=== PATIENT | female | born 1940 | race Caucasian/White ===

== ENCOUNTER 2023-04-20 16:32 | Inpatient (IN) | payer MEDICARE, BC ==
[~2023-04-20] VITALS: Ht 154.9 cm; Wt 40.9 kg
[~2023-04-20 16:32] MED LIST: APIX5TAB3 PO; CARV3.122 PO; FLUT1BLS16 INH; FURO20TA4 PO; LEVO125T8 PO; PANT-47 PO; POTA-206 PO; TRAZ-251 PO
[2023-04-20] MEDS ORDERED: HYDROcodone/acetaminophen 5mg/325mg tablet PO ONE (17:30)
[2023-04-20 18:23] LABS: BASOPHILS # (AUTO) 0.1 X10'3 (0-0.2); BASOPHILS % (AUTO) 0.8 % (0-1); EOSINOPHILS % (AUTO) 0.6 % (0-6); HEMATOCRIT 45.3 % (35.0-45.0); HEMOGLOBIN 15.5 g/dl (12.0-16.0); LYMPHOCYTES # (AUTO) 1.7 X10'3 (1.1-4.8); MEAN CORPUSCULAR HEMOGLOBIN 34.8 PG (27.0-31.0); MEAN CORPUSCULAR HGB CONC 34.3 g/dL (33.0-36.5); MEAN CORPUSCULAR VOLUME 101.5 FL (78-98); MEAN PLATELET VOLUME 9.8 FL (7.4-10.4); MONOCYTES # (AUTO) 0.6 X10'3 (0-0.9); MONOCYTES % (AUTO) 9.2 % (2-12); NEUTROPHILS # (AUTO) 3.8 X10'3 (1.8-7.7); NEUTROPHILS % (AUTO) 62.4 % (42-75); PLATELET COUNT 236 X10'3 (140-440); RED BLOOD COUNT 4.46 X10'6 (4.20-5.60); WHITE BLOOD COUNT 6.1 X10'3 (4.5-11.0)
--- NOTE | 2023-04-20 18:34 | NUR ---
MRI FORM COMPLETED AND FAXED.
--- NOTE | 2023-04-20 18:34 | NUR ---
RN CALLED FOR EKG TO BE PERFORMED.
[2023-04-20 18:36] LABS: APTT 37 SECONDS (22-32); INR 1.4 INR; PROTHROMBIN TIME 14.4 SECONDS (9.0-12.0)
[2023-04-20 18:41] LABS: ALANINE AMINOTRANSFERASE 18 U/L (12-78); ALBUMIN 3.4 G/DL (3.4-5.0); ALBUMIN/GLOBULIN RATIO 0.8 (1.1-1.5); ALKALINE PHOSPHATASE 89 IU/L (46-116); ANION GAP 8 (8-16); ASPARTATE AMINO TRANSFERASE 22 U/L (10-37); BILIRUBIN,TOTAL 1.4 MG/DL (0.1-1.0); BLOOD UREA NITROGEN 22 MG/DL (7-18); BUN/CREATININE RATIO 22.9 (10.0-20.0); CALCIUM 10.3 MG/DL (8.5-10.1); CHLORIDE 101 MMOL/L (99-107); CREATININE 0.96 MG/DL (0.40-0.90); GLUCOSE 120 MG/DL (70-104); POTASSIUM 3.5 MMOL/L (3.5-5.1); SODIUM 139 MMOL/L (135-145); TOTAL CARBON DIOXIDE 30.2 MMOL/L (24-32); TOTAL PROTEIN 7.6 G/DL (6.4-8.2); eCRCL 30 ML/MIN; eGFR 56 ML/MIN
[2023-04-20 18:48] LABS: PRO BRAIN NATRIURETIC PEPTIDE 14840 PG/ML (0-450)
--- NOTE | 2023-04-20 18:58 | NUR ---
EKG BEING COMPLETED AND THEN PT WILL BE TAKEN TO MRI. MRI NOTIFIED.
[2023-04-20] MEDS ORDERED: potassium Cl 20 mEq SR tablet PO PRN ×2 (19:40)
[2023-04-20] MEDS ORDERED: potassium Cl 40MEQ/1/2NS 520ml 520 ML IV PRN (19:40)
[2023-04-20] MEDS ORDERED: acetaminophen 325mg tablet PO PRN (19:40)
[2023-04-20] MEDS ORDERED: ondansetron/PF 4mg/2ml inj IV PRN (19:40)
[2023-04-20] MEDS ORDERED: magnesium 2GM in 50ml NS 50 ML IV PRN (19:40)
[2023-04-20] MEDS ORDERED: magnesium Cl slow-release 64mg tablet PO PRN (19:40)
[2023-04-20] MEDS ORDERED: magnesium 4gm in 100ml NS 100 ML IV PRN (19:40)
[2023-04-20] MEDS: K and/or MAG REPLACEMENT MC SCH (20:00)
[2023-04-20] MEDS: morphine 2 MG/ML inj. syringe IV PRN (20:15)
[2023-04-20] MEDS: normal saline 1000ml 1,000 ML IV SCH (20:44)
--- NOTE | 2023-04-20 22:53 | NUR ---
pt is incontinent and was sitting in bowel and urine since 3 pm pt has some redness on her bottom states she uses cream at [facility]
[2023-04-21 01:30] VITALS: BP 113/74; PULSE 100; RESP 20; TEMP 97.8; O2SAT 95
[2023-04-21] MEDS ORDERED: furosemide 40mg/4ml inj IV ONE (03:30)
[2023-04-21 05:00] VITALS: BP 124/70; PULSE 120; RESP 20; TEMP 97.3; O2SAT 98
--- NOTE | 2023-04-21 06:16 | NUR ---
Problems reprioritized. Patient report given, questions answered & plan of care reviewed with Valencia Madrigal
--- NOTE | 2023-04-21 06:23 | NUR ---
Problems reprioritized. Patient report given, questions answered & plan of care reviewed with Valencia MCKEON.
[2023-04-21] MEDS: K and/or MAG REPLACEMENT MC SCH ×2 (08:00→20:00)
[2023-04-21] MEDS: lactose-reduced food (Ensure Enlive) - 237ml bottle PO SCH ×5 (08:00→17:45)
[2023-04-21 08:03] LABS: BASOPHILS # (AUTO) 0.1 X10'3 (0-0.2); BASOPHILS % (AUTO) 0.9 % (0-1); EOSINOPHILS % (AUTO) 0.5 % (0-6); HEMATOCRIT 45.4 % (35.0-45.0); HEMOGLOBIN 15.1 g/dl (12.0-16.0); LYMPHOCYTES # (AUTO) 1.5 X10'3 (1.1-4.8); MEAN CORPUSCULAR HEMOGLOBIN 34.1 PG (27.0-31.0); MEAN CORPUSCULAR HGB CONC 33.2 g/dL (33.0-36.5); MEAN CORPUSCULAR VOLUME 102.6 FL (78-98); MEAN PLATELET VOLUME 9.6 FL (7.4-10.4); MONOCYTES # (AUTO) 0.6 X10'3 (0-0.9); MONOCYTES % (AUTO) 10.4 % (2-12); NEUTROPHILS # (AUTO) 3.4 X10'3 (1.8-7.7); NEUTROPHILS % (AUTO) 61.2 % (42-75); PLATELET COUNT 206 X10'3 (140-440); RED BLOOD COUNT 4.42 X10'6 (4.20-5.60); RED CELL DISTRIBUTION WIDTH 14.8 % (11.5-14.5); WHITE BLOOD COUNT 5.5 X10'3 (4.5-11.0)
[2023-04-21] MEDS ORDERED: PERFLUTREN PROTEIN-A MICROSPHR (Optison) 0.22 MG/ML 3ML VIAL IV ONE (08:05)
[2023-04-21 08:15] LABS: ALBUMIN 3.1 G/DL (3.4-5.0); ANION GAP 6 (8-16); BLOOD UREA NITROGEN 20 MG/DL (7-18); BUN/CREATININE RATIO 22.2 (10.0-20.0); CHLORIDE 102 MMOL/L (99-107); GLUCOSE 123 MG/DL (70-104); MAGNESIUM 2.1 MG/DL (1.5-2.4); POTASSIUM 4.1 MMOL/L (3.5-5.1); SODIUM 137 MMOL/L (135-145); TOTAL CARBON DIOXIDE 29.1 MMOL/L (24-32); eCRCL 32 ML/MIN; eGFR 60 ML/MIN
[2023-04-21] MEDS: Fluticasone/Umeclidin/Vilanter (Trelegy Ellipta 200-62.5-25) INHALER IH SCH (08:45)
[2023-04-21] MEDS: apixaban 5mg tablet PO SCH ×2 (09:28→20:20)
[2023-04-21] MEDS: furosemide 20MG tablet PO SCH (09:28)
[2023-04-21] MEDS: levoTHYROXINE 125mcg tablet PO SCH (09:28)
[2023-04-21] MEDS: carVEDilol 3.125mg tablet PO SCH (09:28)
[2023-04-21] MEDS: potassium chloride 10mEq ER tablet PO SCH (09:28)
[2023-04-21] MEDS: pantoprazole 40mg Tablet.DR PO SCH ×2 (09:29→20:20)
[2023-04-21 10:00] VITALS: BP 113/81; PULSE 58; RESP 13; TEMP 98.3; O2SAT 100
[2023-04-21 11:43] LABS: THYROID STIMULATING HORMONE 9.78 ulU/ml (0.34-4.50)
--- NOTE | 2023-04-21 13:20 | NUR ---
Initial: Pt admit DX L2 compression fx and hypothyroidism per EMR. Pt reports >34 pounds wt loss w/ decreased intake [employer] per RN Malnutrition Screen. Pt/family seen by RD at bedside; pt reports UBW 150 pounds prior to being sick initially which family confirms was actually ~4 years ago. Per pt/family, decreasing appetite over past 4 years mainly picks at meals throughout the day though does drink Boost daily at home. Current standing scaled wt 90 pounds w/ no prior scaled wt hx. Reported wt loss would be avg ~10% per year past 4 years; given this w/ severe weakness and moderate-severe temporal and bilateral arms wasting evident pt meets severe malnutrition criteria-MD notified. RD provided pt/family w/ Ensure coupons and RD contact information. PO initial meals pending though Ensure Enlive TIDWM started per MD first [facility] today. Pt reports required EC7/thin diet w/ chopped meats per prior OVEN HEATER outpatient assessment since trouble chewing; declines OVEN HEATER BSS this admit-dietary notified of preferences. Pt reports trouble w/ fluids intake though likes soda; is agreeable to lemon-twenty-nine palms soda BIDLD and crystal light packet TIDWM. RD paged MD regarding liberalizing to regular diet and addition of routine MVI given malnutrition status is agreeable; pt reports take MVM daily at home. LBM 04/20 per EMR. Will monitor for further nutrition intervention needs this admit. Rec: 1. liberalize to regular diet; EC7/thin w/ chopped meats for ease of PO. Pt reports were outpatient OVEN HEATER recs; declines OVEN HEATER this admit 2. Ensure Enlive TIDWM per MD; encourage PO meals/ONS 3. routine MVI supplementation given malnutrition status 4. routine bowel care 5. weekly wt Addendum: 04/21/23 at [address] Amended: Links added. Addendum: 04/21/23 at [address] Initial: Pt admit DX L2 compression fx and hypothyroidism per EMR. Pt reports >34 pounds wt loss w/ decreased intake [employer] per RN Malnutrition Screen. Pt/family seen by RD at bedside; pt reports UBW 150 pounds prior to being sick initially which family confirms was actually ~4 years ago. Per pt/family, decreasing appetite over past 4 years mainly picks at meals throughout the day though does drink Boost daily at home. Current standing scaled wt 90 pounds w/ no prior scaled wt hx. Reported wt loss would be avg ~10% per year past 4 years; given this w/ severe weakness and moderate-severe temporal and bilateral arms wasting evident pt meets severe malnutrition criteria-MD notified. RD provided pt/family w/ Ensure coupons and RD contact information. PO initial meals pending though Ensure Enlive TIDWM started per MD first [facility] today. Pt reports required EC7/thin diet w/ chopped meats per prior OVEN HEATER outpatient assessment since trouble chewing; declines OVEN HEATER BSS this admit-dietary notified of preferences. Pt reports trouble w/ fluids intake though likes soda; is agreeable to lemon-twenty-nine palms soda BIDLD and crystal light packet TIDWM. RD paged MD regarding liberalizing to regular diet and addition of routine MVI given malnutrition status is agreeable; pt reports take MVI daily at home. RD encouraged pt family to bring foods from outside per pt preferences to assist w/ intake. LBM 04/20 per EMR. Will monitor for further nutrition intervention needs this admit. Rec: 1. liberalize to regular diet; EC7/thin w/ chopped meats for ease of PO. Pt reports were outpatient OVEN HEATER recs; declines OVEN HEATER this admit. Encourage outside foods if pt preference. 2. Ensure Enlive TIDWM per MD; encourage PO meals/ONS 3. routine MVI supplementation given malnutrition status 4. routine bowel care 5. weekly wt
--- NOTE | 2023-04-21 15:08 | NUR ---
Pt complained of pain while urinating with ferguson catheter. RN noticed urine leakage and the decision was made to dc ferguson catheter. A wick was placed. Patient tolerating well.
[2023-04-21 18:00] VITALS: BP 106/67; PULSE 80; RESP 11; TEMP 98.4; O2SAT 100
--- NOTE | 2023-04-21 18:52 | NUR ---
Report given to Dada MORRIS, pt ate some dinner. Now resting.
[2023-04-21] MEDS: morphine 2 MG/ML inj. syringe IV PRN (19:08)
[2023-04-21 20:00] VITALS: RESP 16; O2SAT 96
[2023-04-21] MEDS: traZODone 50mg tablet PO SCH (20:20)
[2023-04-21 22:00] VITALS: BP 105/67; PULSE 53; RESP 16; TEMP 97.4; O2SAT 96
[2023-04-22] MEDS: morphine 2 MG/ML inj. syringe IV PRN ×4 (05:13→20:22)
[2023-04-22 06:00] VITALS: BP 85/64; PULSE 66; RESP 14; TEMP 97.3; O2SAT 95
--- NOTE | 2023-04-22 06:24 | NUR ---
Patient in room ORTHO 4014. I have received report from ARTURO EDGAR and had the opportunity to ask questions and assume patient care.
[2023-04-22 06:39] LABS: ALBUMIN 2.9 G/DL (3.4-5.0); ANION GAP 6 (8-16); BLOOD UREA NITROGEN 23 MG/DL (7-18); BUN/CREATININE RATIO 27.4 (10.0-20.0); CALCIUM 9.7 MG/DL (8.5-10.1); CHLORIDE 104 MMOL/L (99-107); CREATININE 0.84 MG/DL (0.40-0.90); GLUCOSE 115 MG/DL (70-104); POTASSIUM 3.9 MMOL/L (3.5-5.1); SODIUM 138 MMOL/L (135-145); TOTAL CARBON DIOXIDE 27.8 MMOL/L (24-32); eCRCL 34 ML/MIN; eGFR 65 ML/MIN
[2023-04-22 06:46] LABS: MEAN CORPUSCULAR HGB CONC 33.4 g/dL (33.0-36.5); MEAN PLATELET VOLUME 9.8 FL (7.4-10.4)
[2023-04-22 06:49] LABS: BASOPHILS % (AUTO) 0.8 % (0-1); HEMATOCRIT 42.8 % (35.0-45.0); HEMOGLOBIN 14.3 g/dl (12.0-16.0); LYMPHOCYTES # (AUTO) 1.1 X10'3 (1.1-4.8); MEAN CORPUSCULAR HEMOGLOBIN 34.3 PG (27.0-31.0); MEAN CORPUSCULAR VOLUME 102.6 FL (78-98); MONOCYTES # (AUTO) 0.5 X10'3 (0-0.9); MONOCYTES % (AUTO) 9.9 % (2-12); NEUTROPHILS # (AUTO) 3.1 X10'3 (1.8-7.7); NEUTROPHILS % (AUTO) 65.3 % (42-75); PLATELET COUNT 197 X10'3 (140-440); RED BLOOD COUNT 4.17 X10'6 (4.20-5.60); RED CELL DISTRIBUTION WIDTH 14.9 % (11.5-14.5); WHITE BLOOD COUNT 4.8 X10'3 (4.5-11.0)
--- NOTE | 2023-04-22 07:37 | NUR ---
Patient in room ORTHO 4014. I have received report from JOSE MORRIS and had the opportunity to ask questions and assume patient care.
[2023-04-22] MEDS: levoTHYROXINE 125mcg tablet PO SCH (07:56)
[2023-04-22] MEDS: pantoprazole 40mg Tablet.DR PO SCH ×2 (07:56→20:23)
[2023-04-22] MEDS: potassium chloride 10mEq ER tablet PO SCH (07:56)
[2023-04-22] MEDS: apixaban 5mg tablet PO SCH ×2 (07:56→20:00)
[2023-04-22] MEDS: Fluticasone/Umeclidin/Vilanter (Trelegy Ellipta 200-62.5-25) INHALER IH SCH (08:00)
[2023-04-22] MEDS: carVEDilol 3.125mg tablet PO SCH (08:00)
[2023-04-22] MEDS: lactose-reduced food (Ensure Enlive) - 237ml bottle PO SCH ×3 (08:00→18:26)
[2023-04-22] MEDS: furosemide 20MG tablet PO SCH (08:00)
[2023-04-22] MEDS: K and/or MAG REPLACEMENT MC SCH ×2 (08:00→20:00)
[2023-04-22 09:30] VITALS: BP 104/63
[2023-04-22] MEDS: normal saline 1000ml 1,000 ML IV SCH (12:46)
--- NOTE | 2023-04-22 17:01 | NUR ---
When trying to reassess morphine, accidentally hit admin not reassess. Reviewed with primary nurse and undid the admin. Addendum: 04/22/23 at 1707 by Sawyer Carbone RN reviewed this with nursing admin and it was fixed.
--- NOTE | 2023-04-22 17:10 | NUR ---
called dr baron about pts low urine output, there is maybe about 10 ml of urine in her wick canister it is dark garcia cloudy and no aides or others had changed any incontinence. dr baron stated she wasn't sure what to do. i informed her that i did have to hold lasix and her coreg this am due to low bp. md ordered some lasix 10 mg iv due to pts bp being a little higher then earlier and fluids to run at 60 mls an hr, along with a Sánchez for prolonged immobilization.
[2023-04-22] MEDS ORDERED: furosemide 10 MG/1 ML 10ml inj IV ONE (17:30)
[2023-04-22] MEDS ORDERED: LidoCAINE 2% Topical Jelly 11mL syringe TOP ONE (17:30)
[2023-04-22 18:00] VITALS: BP 117/83; PULSE 106; RESP 16; TEMP 97.5; O2SAT 96
--- NOTE | 2023-04-22 18:31 | NUR ---
Student documentation: I have reviewed all interventions, assessments performed and documented by Cassandra Shirley with [facility]. Student Medication Administration: For this medication-pass time frame 1601-4318, all medication were reviewed, dispensed, administered and documented per hospital policy by Cassandra Shirley with [facility].
--- NOTE | 2023-04-22 18:32 | NUR ---
Problems reprioritized. Patient report given, questions answered & plan of care reviewed with ana vogel.
[2023-04-22 20:00] VITALS: RESP 16; O2SAT 96
[2023-04-22] MEDS: traZODone 50mg tablet PO SCH (20:23)
[2023-04-22 22:00] VITALS: BP 101/66; PULSE 97; RESP 15; TEMP 97.7; O2SAT 93
[2023-04-23] VITALS (7 sets, daily range): BP systolic 103–109; BP diastolic 59–79; PULSE 103–106; RESP 14–20; TEMP 97.4–98.5; O2SAT 94–97
--- NOTE | 2023-04-23 06:10 | NUR ---
Problems reprioritized. Patient report given, questions answered & plan of care reviewed with ARTURO EDGAR.
[2023-04-23 06:30] LABS: BASOPHILS % (AUTO) 0.7 % (0-1); EOSINOPHILS % (AUTO) 0.8 % (0-6); HEMATOCRIT 42.3 % (35.0-45.0); LYMPHOCYTES # (AUTO) 1.2 X10'3 (1.1-4.8); LYMPHOCYTES % (AUTO) 24.6 % (21-51); MEAN CORPUSCULAR HEMOGLOBIN 34.1 PG (27.0-31.0); MEAN CORPUSCULAR VOLUME 103.3 FL (78-98); MEAN PLATELET VOLUME 9.5 FL (7.4-10.4); MONOCYTES # (AUTO) 0.5 X10'3 (0-0.9); MONOCYTES % (AUTO) 10.7 % (2-12); NEUTROPHILS % (AUTO) 63.2 % (42-75); PLATELET COUNT 215 X10'3 (140-440); RED CELL DISTRIBUTION WIDTH 15.2 % (11.5-14.5); WHITE BLOOD COUNT 4.8 X10'3 (4.5-11.0)
[2023-04-23 06:47] LABS: ALBUMIN 2.9 G/DL (3.4-5.0); ANION GAP 10 (8-16); BLOOD UREA NITROGEN 29 MG/DL (7-18); BUN/CREATININE RATIO 29.3 (10.0-20.0); CALCIUM 9.5 MG/DL (8.5-10.1); CHLORIDE 105 MMOL/L (99-107); CREATININE 0.99 MG/DL (0.40-0.90); GLUCOSE 116 MG/DL (70-104); POTASSIUM 4.2 MMOL/L (3.5-5.1); SODIUM 138 MMOL/L (135-145); TOTAL CARBON DIOXIDE 23.1 MMOL/L (24-32); eCRCL 29 ML/MIN; eGFR 54 ML/MIN
--- NOTE | 2023-04-23 07:25 | NUR ---
per IR hold pt eliquis. all other meds are ok if within parameters
[2023-04-23] MEDS: levoTHYROXINE 125mcg tablet PO SCH (07:26)
[2023-04-23] MEDS: carVEDilol 3.125mg tablet PO SCH (07:26)
[2023-04-23] MEDS: pantoprazole 40mg Tablet.DR PO SCH ×2 (07:26→20:09)
[2023-04-23] MEDS: potassium chloride 10mEq ER tablet PO SCH (07:26)
[2023-04-23] MEDS: furosemide 20MG tablet PO SCH (07:30)
[2023-04-23] MEDS: apixaban 5mg tablet PO SCH (07:30)
[2023-04-23] MEDS: normal saline 1000ml 1,000 ML IV SCH (07:35)
[2023-04-23] MEDS: Fluticasone/Umeclidin/Vilanter (Trelegy Ellipta 200-62.5-25) INHALER IH SCH (07:36)
[2023-04-23] MEDS: lactose-reduced food (Ensure Enlive) - 237ml bottle PO SCH ×3 (08:00→18:45)
[2023-04-23] MEDS: K and/or MAG REPLACEMENT MC SCH ×2 (08:00→20:00)
--- NOTE | 2023-04-23 08:35 | NUR ---
PER IR NURSE LANETTE HE STATED THAT DR CURTIS WANTS THERE TO BE AT LEAST 4 DOSES OF EPIQUIS HELD BEFORE PROCEDURE. THEY ARE UNABLE TO DO THE PROCEDURE TODAY AND WILL DO IT TOMORROW. PT NPO AFTER MIDNIGHT AND HOLD ELIQUIS.
--- NOTE | 2023-04-23 10:44 | NUR ---
dr baron was made aware that pt urine output is still low, she only had 180 out last night, stated if her bp is above 100 sbp give her lasix and bp meds don't hold unless under 100 sbp. she stated 20 mg lasix daily would help more so do a dose later in the day not first thing in the am when bp is lower. and talk to comp field case manager about rehab options.
--- NOTE | 2023-04-23 11:25 | NUR ---
as clinical instructor, i reviewed student nurse physical assessment
[2023-04-23] MEDS ORDERED: furosemide 20 MG/2 ML vial IV SCH (13:00)
--- NOTE | 2023-04-23 18:44 | NUR ---
pt stated she is in no pain, little to no complaint of pain throughout the day. only painful when turning.
--- NOTE | 2023-04-23 18:53 | NUR ---
Student documentation: I have reviewed all interventions, assessments performed and documented by Cassandra Shirley with [facility]. Student Medication Administration: For this medication-pass time frame [id number], all medication were reviewed, dispensed, administered and documented per hospital policy by Cassandra Shirley with [facility].
--- NOTE | 2023-04-23 18:59 | NUR ---
Problems reprioritized. Patient report given, questions answered & plan of care reviewed with ira jane rn.
[2023-04-23] MEDS: morphine 2 MG/ML inj. syringe IV PRN (20:35)
[2023-04-23] MEDS: traZODone 50mg tablet PO SCH (21:23)
[2023-04-24] VITALS (11 sets, daily range): BP systolic 100–143; BP diastolic 48–90; PULSE 94–140; RESP 10–18; TEMP 97.3–97.7; O2SAT 87–99
--- NOTE | 2023-04-24 06:37 | NUR ---
Patient in room ORTHO 4022. I have received report from CAROL WOODALL RN and had the opportunity to ask questions and assume patient care.
--- NOTE | 2023-04-24 06:38 | NUR ---
Problems reprioritized. Patient report given, questions answered & plan of care reviewed with ARTURO POWELL.
[2023-04-24 06:55] LABS: BASOPHILS % (AUTO) 0.7 % (0-1); HEMATOCRIT 43.8 % (35.0-45.0); HEMOGLOBIN 14.4 g/dl (12.0-16.0); LYMPHOCYTES # (AUTO) 1.2 X10'3 (1.1-4.8); LYMPHOCYTES % (AUTO) 24.8 % (21-51); MEAN CORPUSCULAR HEMOGLOBIN 34.1 PG (27.0-31.0); MEAN CORPUSCULAR HGB CONC 32.9 g/dL (33.0-36.5); MEAN CORPUSCULAR VOLUME 103.6 FL (78-98); MEAN PLATELET VOLUME 9.8 FL (7.4-10.4); MONOCYTES # (AUTO) 0.6 X10'3 (0-0.9); MONOCYTES % (AUTO) 11.9 % (2-12); NEUTROPHILS # (AUTO) 3.1 X10'3 (1.8-7.7); NEUTROPHILS % (AUTO) 61.6 % (42-75); PLATELET COUNT 189 X10'3 (140-440); RED BLOOD COUNT 4.23 X10'6 (4.20-5.60); RED CELL DISTRIBUTION WIDTH 15.5 % (11.5-14.5)
[2023-04-24 07:04] LABS: ALBUMIN 2.8 G/DL (3.4-5.0); ANION GAP 8 (8-16); BLOOD UREA NITROGEN 26 MG/DL (7-18); BUN/CREATININE RATIO 28.9 (10.0-20.0); CALCIUM 9.6 MG/DL (8.5-10.1); CHLORIDE 106 MMOL/L (99-107); GLUCOSE 106 MG/DL (70-104); POTASSIUM 4.2 MMOL/L (3.5-5.1); SODIUM 139 MMOL/L (135-145); eCRCL 32 ML/MIN; eGFR 60 ML/MIN
[2023-04-24] MEDS: lactose-reduced food (Ensure Enlive) - 237ml bottle PO SCH ×3 (08:00→18:00)
[2023-04-24] MEDS: Fluticasone/Umeclidin/Vilanter (Trelegy Ellipta 200-62.5-25) INHALER IH SCH (08:00)
[2023-04-24] MEDS: levoTHYROXINE 125mcg tablet PO SCH (08:54)
[2023-04-24] MEDS: pantoprazole 40mg Tablet.DR PO SCH ×2 (08:54→20:03)
[2023-04-24] MEDS: carVEDilol 3.125mg tablet PO SCH (08:54)
[2023-04-24] MEDS: potassium chloride 10mEq ER tablet PO SCH (08:55)
[2023-04-24] MEDS: morphine 2 MG/ML inj. syringe IV PRN (09:03)
[2023-04-24] MEDS ORDERED: fentaNYL/PF 50MCG/1 ML 2ML syringe ONE (10:32)
[2023-04-24] MEDS ORDERED: midazolam 1 mg/ML 2ml injection ONE (10:32)
[2023-04-24] MEDS ORDERED: diphenhydrAMINE 50 mg/ml inj ONE (10:32)
[2023-04-24] MEDS ORDERED: iohexol 300 MG/1 ML 50ml polymer ONE (10:47)
[2023-04-24] MEDS ORDERED: HYDROcodone/acetaminophen 5mg/325mg tablet PO PRN (12:10)
--- NOTE | 2023-04-24 12:15 | NUR ---
per IR only one hour of vitals for post procedure.
[2023-04-24] MEDS ORDERED: naloxone 0.4 mg/ml inj ONE (12:18)
[2023-04-24] MEDS ORDERED: naloxone 0.4 mg/ml inj IV ONE (12:25)
--- NOTE | 2023-04-24 12:36 | NUR ---
Page Sent promotional table spacer PAGER ID: [phone] MESSAGE: [phone] b asuncion, called a rapid on this pt she came back from kyphoplasty and was not responding well, she did need narcan. please call me. dixon [phone]
[2023-04-24] MEDS ORDERED: furosemide 20 MG/2 ML vial IV SCH (13:00)
--- NOTE | 2023-04-24 13:36 | NUR ---
pt was taken to the kyphoplasty this am little before 11 am to get her procedure done with IR. i had let pastora IR nurse know that pt had had morphine round 9 am, she was stable, her bp before she left was 102/64 hr 94, ra 95 %, t 97.7, rr 16. pt was A/O x3 and able to answer questions. IR then brought the pt back to the floor and everything went well and cement had set. i then went in right after to go check on the pt, set up post op vitals and noticed she looked like she was in a deep sleep. i then said her name she was nonresponsive and proceeded to do a very firm sternal rub and with no response. i then called a rapid and had it paged. got vitals on the pt about 1215 bp was 100/68 HR 98 and spO2 87% RA, rr 10, unable to obtain patients temp in a timely manner due to equipment malfunction. pt was put on 4 L NC by [facility] instructor and sat her up a little, ICU nurse sarita showed up and stated pt needed to have Narcan from the sedation she had in procedure. he then gave the pt Narcan at 1220, the pt respirations then were less shallow and she started to moved her mouth and wake up more. she seemed to be confused and not talking much or making sense but awake and stable. i took her vitals after she started to wake more bp 138/69, hr 140, spo 96% 4 L, RR 11 new thermometer obtained from another unit the temp was 97.4. dr greenberg was at the bedside at this time and stated she wanted a sitter for her for increased confusion and tele for the increased hr. she did not want to give the pt any pain meds or sedating medication at this time. and stated she would look at the medications and adjust them for her hr and pain. charge nurse was notified and pt has a sitter at the bedside. pt is talking but still confused and stable.
--- NOTE | 2023-04-24 14:00 | NUR ---
per dr greenberg don't give pt any pain meds or sedative meds due to rapid response on pt and her being confused/ lethargic. also asked about BM meds she stated she would address all this and put orders in for pt.
--- NOTE | 2023-04-24 14:00 | NUR ---
dr greenberg wants to hold lasix for now
[2023-04-24] MEDS ORDERED: pantoprazole 40mg Tablet.DR PO SCH (14:40)
[2023-04-24] MEDS ORDERED: morphine 2 MG/ML inj. syringe IV PRN (14:40)
--- NOTE | 2023-04-24 15:38 | NUR ---
PRESSURE ULCER EDUCATION: DEFINITION: A pressure ulcer is an area of skin that breaks down when you stay in one position too long. The constant pressure against the skin reduces the blood flow to that area and the affected tissue dies. CAUSES: "Being bedridden or in a wheelchair "Fragile skin "Having a chronic condition, such as diabetes or vascular disease "Inability to move certain parts of your body without assistance "Older age "Incontinence of urine or stool SYMPTOMS: "A reddened area that DOES NOT turn white when pressed on - this can be the beginning of a pressure ulcer "A blister, deep sore or a crater - these can be advanced pressure ulcers FIRST AID: "Relieve the pressure on this area "Keep the area clean and dry "Call your primary doctor if you see any of the above symptoms "DO NOT massage the area "DO NOT use a donut shaped or ring shaped pillow- these actually interfere with the blood flow and cause complications PREVENTION: "Check for pressure ulcers everyday "Change position at least every two hours to relieve pressure "Use items that help relieve pressure- pillows, sheepskin, foam padding, and powders. "Keep skin clean and dry "Eat healthy well balanced meals "Exercise daily IF YOU SEE ANY OF THESE SYMPTOMS WHILE IN THE HOSPITAL - TELL YOUR NURSE IMMEDIATELY. IF YOU SEE ANY OF THESE SYMPTOMS WHILE AT HOME OR HAVE ANY QUESTIONS OR CONCERNS ABOUT PRESSURE ULCERS - CALL YOUR PRIMARY DOCTOR IMMEDIATELY. Addendum: 04/24/23 at 1538 by Teresa Longoria RN Amended: Links added.
--- NOTE | 2023-04-24 17:14 | NUR ---
Page Sent PAGER ID: [phone] MESSAGE: [phone] delores Flores does not need a sitter. she is a/o x3, can this be DC'd. dixon [phone]
[2023-04-24] MEDS: normal saline 1000ml 1,000 ML IV SCH (17:48)
--- NOTE | 2023-04-24 18:43 | NUR ---
Page Sent PAGER ID: [phone] MESSAGE: [phone] b asuncion, pt HR is still elevated, were still going to adjust her medications, she only takes coreg once daily. thanks dixon [phone]
[2023-04-24] MEDS ORDERED: carVEDilol 3.125mg tablet PO ONE (18:50)
--- NOTE | 2023-04-24 19:55 | NUR ---
Problems reprioritized. Patient report given, questions answered & plan of care reviewed with ira jane rn.
[2023-04-24] MEDS: traZODone 50mg tablet PO SCH (20:03)
--- NOTE | 2023-04-25 01:30 | NUR ---
diesel truck technician called that pt is having an Afib., V/S checked BP 132/[address] Goldstein notified of pt's status and made phone order of Coreg 12.5.
[2023-04-25 01:50] VITALS: BP 132/105; PULSE 126; RESP 16; TEMP 97.6; O2SAT 96
[2023-04-25] MEDS ORDERED: carVEDilol 12.5mg tablet PO SCH (02:05)
[2023-04-25 06:00] VITALS: BP 102/64; PULSE 94; RESP 16; TEMP 97.7; O2SAT 95
--- NOTE | 2023-04-25 06:29 | NUR ---
Problems reprioritized. Patient report given, questions answered & plan of care reviewed with ARTURO PETER.
--- NOTE | 2023-04-25 06:34 | NUR ---
Patient in room ORTHO 4022. I have received report from ARTURO Samuel and had the opportunity to ask questions and assume patient care.
[2023-04-25] MEDS: carVEDilol 3.125mg tablet PO SCH ×3 (06:48→20:32)
--- NOTE | 2023-04-25 06:49 | NUR ---
Held Coreg BP:102/64, pt had rapid called yesterday for respiratory failure.
[2023-04-25 06:51] LABS: ALBUMIN 2.7 G/DL (3.4-5.0); ANION GAP 10 (8-16); BLOOD UREA NITROGEN 28 MG/DL (7-18); BUN/CREATININE RATIO 32.2 (10.0-20.0); CALCIUM 9.5 MG/DL (8.5-10.1); CHLORIDE 110 MMOL/L (99-107); CREATININE 0.87 MG/DL (0.40-0.90); GLUCOSE 82 MG/DL (70-104); POTASSIUM 4.5 MMOL/L (3.5-5.1); SODIUM 143 MMOL/L (135-145); TOTAL CARBON DIOXIDE 22.8 MMOL/L (24-32); eCRCL 33 ML/MIN; eGFR 62 ML/MIN
[2023-04-25] MEDS: normal saline 1000ml 1,000 ML IV SCH ×2 (06:54→13:37)
--- NOTE | 2023-04-25 07:03 | NUR ---
ruby-ortho/neuro- Pt. Rm- [id number]- Alexandria Flores- Held Coreg BP 102/64. Pt is stable and doing well. Director José is wondering if we could D/C Sitter?
[2023-04-25 07:10] LABS: BASOPHILS % (AUTO) 0.8 % (0-1); EOSINOPHILS % (AUTO) 0.8 % (0-6); HEMATOCRIT 43.3 % (35.0-45.0); HEMOGLOBIN 14.3 g/dl (12.0-16.0); LYMPHOCYTES # (AUTO) 0.9 X10'3 (1.1-4.8); LYMPHOCYTES % (AUTO) 20.4 % (21-51); MEAN CORPUSCULAR HEMOGLOBIN 34.4 PG (27.0-31.0); MEAN CORPUSCULAR HGB CONC 32.9 g/dL (33.0-36.5); MEAN CORPUSCULAR VOLUME 104.6 FL (78-98); MONOCYTES # (AUTO) 0.4 X10'3 (0-0.9); MONOCYTES % (AUTO) 9.4 % (2-12); NEUTROPHILS % (AUTO) 68.6 % (42-75); PLATELET COUNT 188 X10'3 (140-440); RED BLOOD COUNT 4.14 X10'6 (4.20-5.60); RED CELL DISTRIBUTION WIDTH 15.3 % (11.5-14.5); WHITE BLOOD COUNT 4.4 X10'3 (4.5-11.0)
[2023-04-25] MEDS: levoTHYROXINE 125mcg tablet PO SCH (07:57)
[2023-04-25] MEDS: Fluticasone/Umeclidin/Vilanter (Trelegy Ellipta 200-62.5-25) INHALER IH SCH (08:00)
[2023-04-25] MEDS: pantoprazole 40mg Tablet.DR PO SCH (08:00)
[2023-04-25] MEDS: lactose-reduced food (Ensure Enlive) - 237ml bottle PO SCH ×3 (08:15→18:00)
[2023-04-25] MEDS: apixaban 5mg tablet PO SCH (08:18)
[2023-04-25 10:00] VITALS: BP 107/50; PULSE 86; RESP 18; TEMP 97.6; O2SAT 97
--- NOTE | 2023-04-25 15:28 | NUR ---
MESSAGE: camilo beltran/neuro- [id number] Pt Rm 4023N- Marine Flores- Urine in Sánchez has changed from a light red to a darker red, 150 ml.
--- NOTE | 2023-04-25 15:57 | NUR ---
Princess has been D/C and Domitila has been D/C
[2023-04-25 16:45] VITALS: RESP 18; O2SAT 95
--- NOTE | 2023-04-25 17:51 | NUR ---
Princess was D/Cd at 1557. Urine in tube and collection device was dark red-garcia, sedimentous and odorous. Vitals taken after D/C: Temp - 36.7 C via rectum, RR - 14, spO2 95 RA, BP 114/70, pulse - 105. Recommend UA d/t urine quality and odor. Addendum: 04/25/23 at 1758 by Jeremy CLEANING Amended: Links added.
[2023-04-25 18:00] VITALS: BP 114/70; PULSE 105; RESP 14; TEMP 96.2; O2SAT 95
--- NOTE | 2023-04-25 18:15 | NUR ---
Problems reprioritized. Patient report given, questions answered & plan of care reviewed with ARTURO Samuel.
--- NOTE | 2023-04-25 18:20 | NUR ---
Patient in room ORTHO 4022. I have received report from ARTURO Willoughby and had the opportunity to ask questions and assume patient care.
[2023-04-25] MEDS: traZODone 50mg tablet PO SCH (20:33)
[2023-04-25 22:00] VITALS: BP 109/72; PULSE 115; RESP 15; TEMP 97.3; O2SAT 96
[2023-04-26 06:00] VITALS: BP 124/76; PULSE 119; RESP 13; TEMP 97.1; O2SAT 93
--- NOTE | 2023-04-26 06:45 | NUR ---
Problems reprioritized. Patient report given, questions answered & plan of care reviewed with ARTURO MARTINEZ.
--- NOTE | 2023-04-26 07:00 | NUR ---
Patient in room ORTHO 4022. I have received report from ARTURO Samuel and had the opportunity to ask questions and assume patient care.
[2023-04-26] MEDS: lactose-reduced food (Ensure Enlive) - 237ml bottle PO SCH ×4 (07:56→13:01)
[2023-04-26] MEDS ORDERED: bisacodyl 10mg suppository rectal RC PRN (08:00)
[2023-04-26] MEDS ORDERED: magnesium hydroxide 30ml (MOM) UD suspension PO PRN (08:00)
[2023-04-26] MEDS ORDERED: carVEDilol 3.125mg tablet PO ONE (08:35)
[2023-04-26] MEDS: normal saline 1000ml 1,000 ML IV SCH (08:48)
[2023-04-26 10:00] VITALS: BP 102/79; PULSE 127; RESP 20; TEMP 97.5; O2SAT 95
[2023-04-26 10:09] LABS: BASOPHILS % (AUTO) 0.8 % (0-1); HEMOGLOBIN 15.3 g/dl (12.0-16.0); LYMPHOCYTES # (AUTO) 1.2 X10'3 (1.1-4.8); LYMPHOCYTES % (AUTO) 27.8 % (21-51); MEAN CORPUSCULAR HGB CONC 32.5 g/dL (33.0-36.5); MEAN CORPUSCULAR VOLUME 104.8 FL (78-98); MEAN PLATELET VOLUME 9.6 FL (7.4-10.4); MONOCYTES # (AUTO) 0.3 X10'3 (0-0.9); MONOCYTES % (AUTO) 7.4 % (2-12); NEUTROPHILS # (AUTO) 2.8 X10'3 (1.8-7.7); PLATELET COUNT 177 X10'3 (140-440); RED BLOOD COUNT 4.49 X10'6 (4.20-5.60); RED CELL DISTRIBUTION WIDTH 16.2 % (11.5-14.5); WHITE BLOOD COUNT 4.5 X10'3 (4.5-11.0)
[2023-04-26 10:30] LABS: ALANINE AMINOTRANSFERASE 16 U/L (12-78); ALBUMIN 2.8 G/DL (3.4-5.0); ALBUMIN/GLOBULIN RATIO 0.7 (1.1-1.5); ALKALINE PHOSPHATASE 111 IU/L (46-116); ANION GAP 12 (8-16); ASPARTATE AMINO TRANSFERASE 26 U/L (10-37); BILIRUBIN,TOTAL 1.2 MG/DL (0.1-1.0); BLOOD UREA NITROGEN 27 MG/DL (7-18); BUN/CREATININE RATIO 33.3 (10.0-20.0); CALCIUM 9.7 MG/DL (8.5-10.1); CHLORIDE 108 MMOL/L (99-107); CREATININE 0.81 MG/DL (0.40-0.90); GLUCOSE 90 MG/DL (70-104); POTASSIUM 4.4 MMOL/L (3.5-5.1); SODIUM 142 MMOL/L (135-145); TOTAL CARBON DIOXIDE 22.5 MMOL/L (24-32); TOTAL PROTEIN 6.6 G/DL (6.4-8.2); eCRCL 35 ML/MIN; eGFR 68 ML/MIN
[2023-04-26 10:45] VITALS: RESP 20; O2SAT 95
[2023-04-26] MEDS: pantoprazole 40mg Tablet.DR PO SCH (11:01)
[2023-04-26] MEDS: levoTHYROXINE 125mcg tablet PO SCH (11:01)
[2023-04-26] MEDS ORDERED: amiodarone 200mg tablet PO SCH (14:20)
--- NOTE | 2023-04-26 15:20 | NUR ---
Pt transferred to [facility] via [facility]. IV DC'd, tip intact. No belongings.
[2023-04-26] MEDS ORDERED: carvedilol 6.25mg tablet PO SCH (20:00)
== END 2023-04-26 15:20 | DRG 477 ==
LOC: ER 16:33 → ED HOLD 19:44 → ORTHO 4S 04-21 01:27
PROVIDERS: ADMIT Internal Medicine; ATTEND Internal Medicine
PROC: 0QB03ZX Excision of Lumbar Vertebra, Percutaneous Approach, Diagnostic (ICD-10-PCS; principal; 2023-04-24)
PROC: 0QU03JZ Supplement Lumbar Vertebra with Synthetic Substitute, Percutaneous Approach (ICD-10-PCS; 2023-04-24)
DX: S32.020A Wedge compression fracture of second lumbar vertebra, initial encounter for closed fracture (principal); I21.A1 Myocardial infarction type 2; I50.22 Chronic systolic (congestive) heart failure; K21.9 Gastro-esophageal reflux disease without esophagitis; G47.00 Insomnia, unspecified; Z66 Do not resuscitate; I48.91 Unspecified atrial fibrillation; E03.9 Hypothyroidism, unspecified; R31.0 Gross hematuria; F32.A Depression, unspecified; X58.XXXA Exposure to other specified factors, initial encounter; Z86.718 Personal history of other venous thrombosis and embolism; Z86.711 Personal history of pulmonary embolism; Z86.73 Personal history of transient ischemic attack (TIA), and cerebral infarction without residual deficits; Z85.41 Personal history of malignant neoplasm of cervix uteri; Z91.018 Allergy to other foods; Z79.01 Long term (current) use of anticoagulants; Z79.899 Other long term (current) drug therapy; Y93.89 Activity, other specified; Y92.89 Other specified places as the place of occurrence of the external cause; Y99.8 Other external cause status
CPT/HCPCS: 22514; 36415; 72131; 72148; 80048; 80053; 82948; 83735; 83880; 84443; 84484; 85025; 85610; 85651; 85730; 86140; 87081; 92508; 92616; 93005; 93306; 97110; 97161; 97530; 97760; 99152; 99153; 99285; A4314; A4615; A6250; C1713; G0378; J1200; J1940; J2250; J2270; J2310; J2405; J3010; J7030; Q9967